=== PATIENT | male | born 1990 | race Caucasian/White ===

== ENCOUNTER 2020-12-03 11:30 | Emergency (ER) | payer OTHER, SELFPAY ==
[2020-12-03] VITALS (9 sets, daily range): BP systolic 130–164; BP diastolic 78–103; PULSE 74–92; RESP 13–30; TEMP 36.3; O2SAT 99–100
--- NOTE | ~2020-12-03 | XR_ITS ---
EXAMINATION: XR chest 2V EXAM DATE: 12/03/2020 12:08 INDICATION: Right-sided chest pain and tightness. TECHNIQUE: Frontal and lateral projections of the chest obtained and reviewed. There is no prior stud y for comparison. FINDINGS: The lungs are clear. There are no pleural effusions. The cardiomediastinal silhouette is within normal limits. There is no pneumothorax suspected. The bones and soft tissues are unremarkab le. IMPRESSION: No acute cardiopulmonary findings. Reviewed, dictated and finalized at location A.
--- NOTE | 2020-12-03 11:32 | ECG_ITS ---
Measurements Intervals [place] Rate: 77 P: 29 NC: 181 QRS: 16 QRSD: 91 T: 55 QT: 359 QTc: 409 Interpretive Statements SINUS RHYTHM WITH SINUS ARRHYTHMIA INCOMPLETE RIGHT BUNDLE BRANCH BLOCK BORDERLINE ECG Electronically Signed On 12-03-2020 12:11:24 CDT by Otis Carpio D.O.
[2020-12-03 11:46] LABS: Basophils Absolute Auto 0.1 K/mm3 (0.0-0.1); Basophils Percent Auto 0.6 % (0.2-1.2); Eosinophils Absolute Auto 0.3 K/mm3 (0-0.3); Eosinophils Percent Auto 2.5 % (0-4.4); Hematocrit 45.6 % (42.0-52.0); Hemoglobin 15.8 g/dL (14.0-18.0); Immature Granulocyte Absolute 0.03 K/mm3 (0.00-0.031); Immature Granulocyte Percent A 0.3 % (0-0.5); Lymphocytes Absolute Auto 2.59 K/mm3 (0.9-3.2); Lymphocytes Percent Auto 23.9 % (18.3-44.2); Mean Corpuscular HGB Conc 34.6 g/dl (32-36); Mean Corpuscular Hemoglobin 30.6 pg (26-34); Mean Corpuscular Volume 88.4 fl (80-100); Mean Platelet Volume 8.6 fl (7.4-10.4); Monocytes Absolute Auto 0.8 K/mm3 (0.1-0.6); Monocytes Percent Auto 7.2 % (2.6-8.5); Neutrophils Absolute Auto 7.1 K/mm3 (1.3-6.7); Neutrophils Percent Auto 65.5 % (45.5-73.1); Platelet Count Result 276 k/mm3 (150-375); Red Blood Count 5.16 M/mm3 (4.6-6.20); White Blood Count 10.8 K/mm3 (4.5-10.0)
[2020-12-03 11:55] LABS: INR 0.9; Prothrombin Time 12.9 Seconds (11.1-14.7)
[2020-12-03 11:56] LABS: Partial Thromboplastin Time 27.1 SECONDS (22.3-36.8)
[2020-12-03 11:57] LABS: Anion Gap 13 mmol/L (8-16); Blood Urea Nitrogen 9 mg/dL (9-20); Calcium 9.9 mg/dL (8.4-10.2); Carbon Dioxide 24 mmol/L (22-30); Chloride 103 mmol/L (98-107); Estimated CRCL calculation 191 ml/min; Estimated Glomerular Filt Rate > 60; Glucose 97 mg/dL (75-110); Potassium 4.2 mmol/L (3.4-5.0); Sodium 140 mmol/L (137-145)
[2020-12-03 12:09] LABS: Troponin I < 0.012 ng/mL (0.000-0.034)
--- NOTE | 2020-12-03 12:25 | ED.CHESTPAIN ---
HPI - Chest Pain General Chief Complaint: Chest Pain Stated Complaint: Chest Tightness Time Seen by Provider: 12/03/20 12:19 History of Present Illness HPI narrative: Right sided chest pain for 2 days. Pressure. Radiates to the neck. Tender to touch. worse with taking a deep breath He thought it was anxiety, but after not getting better for a few days he decided to come in. No SOB, nausea, vomiting, fever, cough, leg pain or swelling. His grandfather of an MA around 58. Related Data Home Medications Medication Instructions Recorded Confirmed No Home Medications 12/03/20 12/03/20 Allergies Allergy/AdvReac Type Severity Reaction Status Date / Time Penicillins Allergy Severe Hives / Verified 07/12/18 15:46 Red Face sulfamethoxazole Allergy Unknown Anaphylaxis Verified 12/03/20 12:20 trimethoprim Allergy Unknown Anaphylaxis Verified 12/03/20 12:20 Review of Systems Review of Systems: All systems reviewed & are unremarkable except as noted in HPI and below Constitutional: Constitutional: Denies chills, Denies fever(s) and Denies weakness ENT: Reports system reviewed and no additional complaints, except as documented Cardiovascular: Cardiovascular: Reports chest pain and Reports radiating jaw, neck or arm pain Respiratory: Respiratory: Denies dyspnea Gastrointestinal: Gastrointestinal: Reports abdominal pain and Reports nausea Musculoskeletal: Musculoskeletal: Reports no additional musculoskeletal complaints Neurologic: Reports system reviewed and no additional complaints, except as documented Psychiatric: Psychiatric: Reports anxiety [facility] Past Medical History Medical History (Updated 12/03/20 @ 12:51 by Jelani Palmer MD) Anxiety Exam Const: General: healthy appearing, no acute distress and alert Orientation/consciousness: patient oriented x3 HENMT: Head: normal to inspection Neck: Neck: normal visual inspection and no lymphadenopathy Chest: Chest palpation & inspection: tenderness pectoral muscle on the right Resp: Effort & Inspection: normal respiratory effort Auscultation: clear to auscultation bilaterally, no rales, no rhonchi and no wheezes Cardio: Jugular venous distension: no JVD Rate: regular rate Rhythm: regular rhythm Heart sounds: no murmurs GI: Inspection: non-distended GI Palp: Yes Soft to palpation and No Tenderness to palpation present (GI) Skin: General skin exam: normal color Neuro: General: patient oriented x3, moves all extremities, no focal motor deficits and CN's II-XI intact bilaterally Speech: normal speech Extrem: General: no edema Psych: Appearance: well kempt Affect: normal affect Course Vital Signs Vital signs: Vital Signs Temperature 36.3 C L 12/03/20 11:35 Pulse Rate 85 12/03/20 11:35 Respiratory Rate 18 12/03/20 11:35 Blood Pressure 164/94 H 12/03/20 11:35 Pulse Oximetry 100 12/03/20 11:35 Temperature 36.3 C L 12/03/20 11:35 Pulse Rate 92 12/03/20 13:05 Respiratory Rate 16 12/03/20 13:05 Blood Pressure 132/78 12/03/20 13:05 Pulse Oximetry 100 12/03/20 13:05 MDM - Chest Pain MDM Narrative Medical decision making narrative: No acute changes on EKG. Troponin negative. CXR clear. Pain is not tyical of cardiac pain. Differential Diagnosis Differential diagnosis: Likely unstable angina pectoris, atypical chest pain, st elevation myocardial infarction and chest pain Medical Records Data Attestation: I reviewed the patient's medical records. Lab Data Attestation: I reviewed the patient's lab results. Result diagrams: 12/03/20 11:40 12/03/20 11:40 Labs: Lab Results 12/03/20 12/03/20 12/03/20 Range/Units 11:40 11:40 11:40 WBC 10.8 H (4.5-10.0) K/mm3 RBC 5.16 (4.6-6.20) M/mm3 Hgb 15.8 (14.0-18.0) g/dL Hct 45.6 (42.0-52.0) % MCV 88.4 (80-100) fl MCH 30.6 (26-34) pg MCHC 34.6 (32-36) g/dl RDW 12.0 (11.5-14.5) % Plt Count
[2020-12-03] MEDS: ASPIRIN 81 MG CHEWABLE TABLET 324 MG PO (12:49)
== END 2020-12-03 13:06 | disposition home or self-care (01) ==
PROVIDERS: Emergency Medicine; Emergency Provider Emergency Medicine; PCP Registered Nurse
DX: R07.9 Chest pain, unspecified (principal); F41.9 Anxiety disorder, unspecified
CPT/HCPCS: 36415; 71046; 80048; 84484; 85025; 85610; 85730; 93005; 99284; A9270

== ENCOUNTER 2022-07-11 08:06 | Emergency (ER) | payer OTHER, SELFPAY ==
[2022-07-11 08:22] VITALS: BP 139/85; PULSE 120; RESP 24; TEMP 37.3; O2SAT 99
--- NOTE | 2022-07-11 08:24 | ED.URI ---
HPI - URI/Sore Throat General Chief Complaint: Upper Respiratory Infection Stated Complaint: sorethroat Time Seen by Provider: 07/11/22 08:28 History of Present Illness HPI Narrative: 32-year-old male presented for complaint of bilateral ears feeling clogged since yesterday morning as well as sore throat and generalized malaise. He endorses last night feeling by aches, chills, and sore throat. Denies cough, shortness of breath, nasal congestion, nausea, vomiting or diarrhea. He has not taken anything for symptoms. He denies known contacts. Related Data Allergies Allergy/AdvReac Type Severity Reaction Status Date / Time sulfamethoxazole AdvReac Severe Anaphylaxis Verified 07/11/22 08:10 trimethoprim AdvReac Severe Anaphylaxis Verified 07/11/22 08:10 Penicillins AdvReac Intermediate Hives / Verified 07/11/22 08:10 Red Face Review of Systems Review of Systems: per HPI [facility] Past Medical History Medical History Anxiety Exam Narrative: GENERAL: well-appearing EYES: conjunctivae clear ENT: Mucous membranes moist. TMs unable to visualize bilaterally due to cerumen; no tragal tenderness. Oropharynx erythematous Tonsils enlarged 3+ with exudate. No drooling, no hoarseness, no trismus, uvula midline. No tripod positioning, hot potato voice, or soft palate swelling. NECK: Supple. No lymphadenopathy CHEST: Clear to auscultation, breath sounds equal. No respiratory distress, speaks in full sentences. HEART: Regular rate and rhythm. No murmur heard. SKIN: Warm, dry, no rash. NEURO: Alert and oriented x3. Course Course Emergency Course: Patient is aware of diagnosis, understands and agrees to treatment plan. Anticipatory guidance given. Patient agrees to follow-up as directed and is aware of reasons to seek care at the emergency department. Portions of this record may have been created with voice recognition software Level of Care: Express Care Visit Vital Signs Vital signs: Vital Signs Temperature 99.2 F 07/11/22 08:22 Pulse Rate 120 H 07/11/22 08:22 Respiratory Rate 24 H 07/11/22 08:22 Blood Pressure 139/85 07/11/22 08:22 Pulse Oximetry 99 07/11/22 08:22 Oxygen Delivery Room Air 07/11/22 08:22 Temperature 99.2 F 07/11/22 08:22 Pulse Rate 120 H 07/11/22 08:22 Respiratory Rate 24 H 07/11/22 08:22 Blood Pressure 139/85 07/11/22 08:22 Pulse Oximetry 99 07/11/22 08:22 Oxygen Delivery Room Air 07/11/22 08:22 Procedures Ear Wax Removal Both Ears: Cerumenolytic Used: other (warm water/hydrogen peroxide) Results: Re-examined: some cerumen remains Ear Canal Exam: atraumatic Patient Tolerated Procedure: well and no complications Complications: no problems Technique: ear canal irrigated and ear canal curetted Additional Comments: Attempted bilateral cerumen removal with irrigation and curette, though unsuccessful. Small amount of hard cerumen near TM bilaterally, remains in place. MDM - URI/Sore Throat MDM Narrative Medical decision making narrative: strep result reviewed with pt. Advise supportive treatments and s/s to go to the ER. Advised the use of Debrox x1 week and return to us or pcp for cerumen removal if needed. Patient is appropriate for outpatient treatment and follow-up. Differential Diagnosis Differential diagnosis: Likely upper respiratory infection, viral infection and pharyngitis Discharge Plan Discharge Clinical Impression: Strep pharyngitis, Bilateral impacted cerumen Patient Disposition: Home, Self-Care Condition: Stable Instructions: Antibiotic Form, Strep Throat (ED) Additional Instructions: Please use a earwax softening agent such as [id number] Debrox or a mixture of 1 part hydrogen peroxide in 1 part warm water several times weekly to keep your earwax soft and prevent further impaction. Please follow-up with your primary ca
== END 2022-07-11 08:50 | disposition home or self-care (01) ==
PROVIDERS: Emergency Provider Nurse Practitioner Family; PCP Registered Nurse
DX: J02.0 Streptococcal pharyngitis (principal); H61.23 Impacted cerumen, bilateral
CPT/HCPCS: 69210; 87880; 99213; A9270; G0463